=== PATIENT | male | born 1985 | race Two or more races ===

== ENCOUNTER 2017-01-26 21:06 | Emergency (ER) | payer BC ==
[~2017-01-26] VITALS: Ht 160 cm; Wt 76.2 kg
[2017-01-26 21:29] VITALS: BP 134/93
--- NOTE | 2017-01-26 22:15 | PHYS DOC ---
Past Medical History Past Medical History: No Pertinent History Past Surgical History: No Surgical History Alcohol Use: Occasionally Drug Use: None Adult General Chief Complaint Chief Complaint: EYE PROBLEMS HPI HPI Patient is a 31 year old male presents to the emergency department stating that he's had bilaterally watery itchy eyes with headache and runny nose. He states that this is been going on for probably the last 2-3 days. He has not taken anything [id number] to help with the discomfort. He does state he's had a history of seasonal allergies but does not take anything. Review of Systems Review of Systems Constitutional: Denies fever or chills [] Eyes: Denies change in visual acuity, redness, or eye pain [] HENT: nasal congestion bilateral watery eyes denies sore throat [] Respiratory: Denies cough or shortness of breath [] Cardiovascular: No additional information not addressed in HPI [] GI: Denies abdominal pain, nausea, vomiting, bloody stools or diarrhea [] : Denies dysuria or hematuria [] Musculoskeletal: Denies back pain or joint pain [] Integument: Denies rash or skin lesions [] Neurologic: Denies headache, focal weakness or sensory changes [] Allergies Allergies Allergies Coded Allergies Type Severity Reaction Last Updated Verified No Known Drug Allergies 01/26/17 No Physical Exam Physical Exam Constitutional: Well developed, well nourished, no acute distress, non-toxic appearance. [] HENT: Normocephalic, atraumatic, bilateral external ears normal, oropharynx moist, no oral exudates, nose normal. Bilateral tympanic membranes appear to be normal. Throat with no erythematous noted. Patient with nasal drainage noted. Eyes: PERRLA, EOMI, conjunctiva, left appears to be slightly red conjunctiva on the right normal. Clear drainage noted from bilateral eyes. Neck: Normal range of motion, no tenderness, supple, no stridor. [] Cardiovascular:Heart rate regular rhythm, no murmur [] Lungs & Thorax: Bilateral breath sounds clear to auscultation [] Skin: Warm, dry, no erythema, no rash. [] Back: No tenderness Extremities: No tenderness, no cyanosis, no clubbing, ROM intact, no edema. [] Neurologic: Alert and oriented X 3, normal motor function, normal sensory function, no focal deficits noted. [] Psychologic: Affect normal, judgement normal, mood normal. [] Current Patient Data Vital Signs Vital Signs Date Time Temp Pulse Resp B/P Pulse Ox O2 Delivery O2 Flow Rate FiO2 01/26/17 21:29 98.4 89 18 97 Room Air 98.4 EKG EKG [] Radiology/Procedures Radiology/Procedures [] Course & Med Decision Making Course & Med Decision Making Pertinent Labs and Imaging studies reviewed. (See chart for details) Patient will be discharged home with recommendations to use Visine allergy drops to bilateral eyes. He was also recommended to use Claritin or Zyrtec over- the-counter instructed by senior test engineer. Patient will be discharged home in stable condition signs and symptoms to return back to emergency department been provided. Patient agrees with discharge instructions treatment regimens and follow-up recommendations. [] Dragon Disclaimer Dragon Disclaimer This electronic medical record was generated, in whole or in part, using a voice recognition dictation system. Departure Departure Impression: Primary Impression: Environmental allergies Disposition: 01 HOME, SELF-CARE Condition: STABLE Referrals: NO PCP (PCP) Patient Instructions: Allergies, Generic Additional Instructions: Your being treated for seasonal allergies. Visine allergy drops may be placed in the bilateral eyes. Claritin or Zyrtec may be taken as directed by senior test engineer. Drink plenty of fluids. Follow-up to primary care physician in the next 3-5 days. Return back to emergency prior signs symptoms of become worse. IONA BAUGH APRN Jan 26, 2017 22:15
== END 2017-01-26 22:24 | disposition home or self-care (01) ==
LOC: ER 21:06
DX: J30.2 Other seasonal allergic rhinitis (principal); R51 Headache
CPT/HCPCS: 99281